=== PATIENT | male | born 1975 | race Caucasian/White ===

== ENCOUNTER 2019-12-25 22:30 | Emergency (ER) | payer BC, OTHER ==
[2019-12-25 22:52] VITALS: BP 146/96; PULSE 113; RESP 18; TEMP 98.7
--- NOTE | 2019-12-25 23:21 | ED ---
Headache HPI - General Chief Complaint: Headache Stated Complaint: Migraine Time Seen by Provider: 12/25/19 23:09 Mode of arrival: EMS Limitations: no limitations - History of Present Illness Initial Comments: 44-year-old male patient presents to the emergency department today for evaluation of migraine headache. Patient was brought in via EMS for severe left-sided headache. 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 Patient states that the pain worsened significantly and started radiating into the left eye. Patient states the pain was so intense that he was unable to think or move. Patient states that while in EMS he did have IV fluids and pain medication Toradol. Upon arrival to the emergency Department symptoms have improved. He states he does have a history of migraine headaches and his symptoms are consistent with his usual migraine pattern. He denies this being the worst hea dache of his life. He denies blurred or double vision. Denies numbness, tingling, weakness to the extremities. Denies any nausea or vomiting. Patient denies any recent rash, fever, chills, cough, shortness of breath, chest pain, abdominal pain, nausea, vomiting, diarrhea, constipation, back pain, numbness, tingling, hematuria, dysuria, urinary urgency, urinary frequency, or any other complaints. - Related Data Home Medications Medication Instructions Recorded Confirmed PARoxetine [Paxil] 20 mg PO DAILY 12/24/14 12/24/14 clonazePAM [KlonoPIN] 2 mg PO DAILY 12/24/14 12/24/14 Previous Rx's Medication Instructions Recorded Cyclobenzaprine [Flexeril] 1 - 2 tab PO TID #20 tablet 12/24/14 Hydrocodone/Acetaminophen [[place] 1 each PO Q6HR PRN #20 tab 12/24/14 5-325] Ibuprofen [Motrin] 800 mg PO Q6HR PRN #30 tab 12/24/14 Allergies Allergy/AdvReac Type Severity Reaction Status Date / Time No Known Allergies Allergy Verified 12/24/14 19:41 Review of Systems ROS Statement: Those systems with pertinent positive or pertinent negative responses have been documented in the HPI. ROS Other: All systems not noted in ROS Statement are negative. Past Medical History Past Medical History: No Reported History Additional Past Medical History / Comment(s): migraines History of Any Multi-Drug Resistant Organisms: None Reported Past Surgical History: No Surgical Hx Reported Past Psychological History: Anxiety, Panic Disorder Smoking Status: Never smoker Past Alcohol Use History: None Reported Past Drug Use History: None Reported General Exam Limitations: no limitations General appearance: alert, in no apparent distress, other (This is a well- developed, well-nourished adult male patient in no acute distress. Vital signs upon presentation are temperature 98.7F, pulse 113, respirations 18, blood pressure 146/96, pulse ox 97% on room air.) Eye exam: Present: normal appearance, PERRL, EOMI. Absent: scleral icterus, conjunctival injection, nystagmus, periorbital swelling ENT exam: Present: normal exam, normal oropharynx, mucous membranes moist Respiratory exam: Present: normal lung sounds bilaterally. Absent: respiratory distress, wheezes, rales, rhonchi, stridor Cardiovascular Exam: Present: regular rate, normal rhythm, normal heart sounds. Absent: systolic murmur, diastolic murmur, rubs, gallop, clicks Neurological exam: Present: alert, oriented X3, CN II-XII intact, other (Strength in all 4 extremities is 5/5.) Psychiatric exam: Present: normal affect, normal mood Skin exam: Present: warm, dry, intact, normal color. Absent: rash Course Vital Signs 12/25/19 22:46 Temperature 98.7 F Pulse Rate 113 H Respiratory 18 Rate Blood Pressure 146/96 O2 Sat by Pulse 97 Oximetry Medical Decision Making - Medical Decision Making 44-year-old male patient presents to the emergency department today for evaluation of severe migraine headache. Physical examination is unremarkable. He is neurologically intact without focal deficits. Patient did receive IV fluids and Toradol and the ambulance. Upon arrival to this emergency department he is feeling better. He is currently rating his pain at a 1 out of 10 on the pain scale. Patient states that this migraine is consistent with his usual migraine pattern. Denies this being the worst headache of his life. We did discuss possible treatment options, monitoring, testing, he states that he is feeling much better and would like to be discharged home. He is instructed to follow-up with his primary care physician for recheck in 1-2 days. Return parameters were discussed in detail. He verbalizes understanding and agrees with this plan. Disposition Clinical Impression: Migraine headache Disposition: HOME SELF-CARE Condition: Good Instructions (If sedation given, give patient instructions): Migraine Headache (ED) Additional Instructions: Increase fluids. Rest. Follow up to primary care physician for recheck in one to days. Discussed possibility of a prescription for Imitrex. Return to the emergency Department immediately for any new, worsening, or concerning symptoms. Is patient prescribed a controlled substance at d/c from ED?: No Referrals: Tristan Salcido DO [Primary Care Provider] - 1-2 days Time of Disposition: 23:21
== END 2019-12-25 23:54 | disposition home or self-care (01) ==
LOC: EC 22:30
DX: G43.909 Migraine, unspecified, not intractable, without status migrainosus (principal); F41.9 Anxiety disorder, unspecified; F41.0 Panic disorder [episodic paroxysmal anxiety]; Z79.899 Other long term (current) drug therapy
CPT/HCPCS: 99283

== ENCOUNTER 2023-01-12 15:10 | Observation (INO) | payer BC ==
[2023-01-12 15:43] LABS: Basophils % (A) 0 %; Eosinophils # (A) 0.4 k/uL (0-0.7); Eosinophils % (A) 5 %; HCT 43.8 % (39.0-53.0); HGB 14.5 gm/dL (13.0-17.5); Lymphocytes % (A) 23 %; MCH 28.9 pg (25.0-35.0); MCHC 33.1 g/dL (31.0-37.0); MCV 87.1 fL (80.0-100.0); Mean Platelet Volume 8.2; Monocytes # (A) 0.5 k/uL (0-1.0); Monocytes % (A) 6 %; Neutrophils # (A) 5.7 k/uL (1.3-7.7); Neutrophils % (A) 65 %; Platelet Count 268 k/uL (150-450); RBC 5.02 m/uL (4.30-5.90); RDW 12.8 % (11.5-15.5); WBC 8.8 k/uL (3.8-10.6)
[2023-01-12 16:08] LABS: ALT 19 U/L (4-49); AST 22 U/L (17-59); African American GFR (CKD) >90 (>60 ml/min/1.73 sqM); Alkaline Phosphatase 86 U/L (38-126); Anion Gap 8 mmol/L; Blood Urea Nitrogen 15 mg/dL (9-20); Calcium 9.1 mg/dL (8.4-10.2); Carbon Dioxide 25 mmol/L (22-30); Chloride 105 mmol/L (98-107); Glucose 101 mg/dL (74-99); Magnesium 2.2 mg/dL (1.6-2.3); Non-African American GFR(CKD) >90 (>60 ml/min/1.73 sqM); Partial Thromboplastin Time 23.4 sec (22.0-30.0); Potassium 4.2 mmol/L (3.5-5.1); Prothrombin Time 10.1 sec (9.0-12.0); Sodium 138 mmol/L (137-145); Total Bilirubin 0.3 mg/dL (0.2-1.3); Total Protein 7.1 g/dL (6.3-8.2)
--- NOTE | 2023-01-12 16:10 | XR ---
EXAMINATION TYPE: XR chest 2V DATE OF EXAM: 01/12/2023 COMPARISON: Chest x-ray of November 23, 2013 HISTORY: Chest pain. TECHNIQUE: Frontal and lateral views of the chest are obtained. FINDINGS: There is no suspicious new focal air space opacity, pleural effusion, or pneumothorax seen . The cardiac silhouette size is stable and within normal limits. The osseous structures are intac t. IMPRESSION: No acute process. No significant change from prior.
[2023-01-12] MEDS ORDERED: SODIUM CHLORIDE 0.9% 1,000 ML IV ONE (16:55)
--- NOTE | 2023-01-12 17:02 | ED ---
General Adult HPI - General Chief complaint: Chest Pain Stated complaint: SOB Time Seen by Provider: 01/12/23 16:36 Source: patient, RN notes reviewed Mode of arrival: ambulatory Limitations: no limitations - History of Present Illness Initial comments: 47-year-old male with no significant past medical history presents to the emergency department the chief complaint shortness of breath. Patient reports worsening shortness of breath for the last 40 days. He reports today is worse when he walks up the stairs. She reports pleuritic chest pain. He denies any recent plane rides or car. Denies tobacco product use denies chest pain, palpitations, nausea, vomiting, diaphoresis - Related Data Home Medications Medication Instructions Recorded Confirmed PARoxetine [Paxil] 20 mg PO HS 12/24/14 01/12/23 Losartan [Cozaar] 50 mg PO DAILY 01/12/23 01/12/23 clonazePAM [KlonoPIN] 0.5 mg PO BID 01/12/23 01/12/23 Allergies Allergy/AdvReac Type Severity Reaction Status Date / Time No Known Allergies Allergy Verified 01/12/23 18:02 Review of Systems ROS Statement: Those systems with pertinent positive or pertinent negative responses have been documented in the HPI. ROS Other: All systems not noted in ROS Statement are negative. Past Medical History Past Medical History: No Reported History Additional Past Medical History / Comment(s): migraines History of Any Multi-Drug Resistant Organisms: None Reported Past Surgical History: No Surgical Hx Reported Past Psychological History: Anxiety, Panic Disorder Past Alcohol Use History: None Reported Past Drug Use History: None Reported General Exam - General Exam Comments Initial Comments: General: Alert, in no acute distress Head: atraumatic normocephalic. Eyes PERRL, EOMI intact, mucous membranes moist Respiratory: Lungs clear to auscultation bilaterally Cardiovascular: Rate regular rate and rhythm Abdominal: Soft without guarding or rebound Extremities: Normal inspection with full range of motion and normal capillary refill Neuroogic: alert and oriented 3, CN II-XII intact, able to ambulate with steady gait Skin: warm dry and intact with normal color Limitations: no limitations Course Vital Signs 01/12/23 01/12/23 01/12/23 15:11 16:29 17:04 Temperature 97.7 F Pulse Rate 79 68 Respiratory 20 18 14 Rate Blood Pressure 136/89 127/93 O2 Sat by Pulse 98 95 Oximetry 01/12/23 01/12/23 17:18 19:00 Temperature Pulse Rate 68 Respiratory 18 Rate Blood Pressure 138/96 O2 Sat by Pulse 97 99 Oximetry - Reevaluation(s) Reevaluation #1: 01/12/23 18:15 Notified of elevated d-dimer. CT angiogram to rule out PE ordered. Reevaluation #2: 01/12/23 18:51 Discussed with [facility] [place] who agrees and accepts the patient for admission. EKG Findings - EKG Comments: EKG Findings:: I interpreted the following: EKG performed at 15:18 rate 60 bpm normal sinus rhythm DC interval 174, QRS duration 101, QT/QTC 375/393 Medical Decision Making - Medical Decision Making Was pt. sent in by a medical professional or institution (BRYNN Miller, RETAIL ACCOUNT MANAGER, urgent c are, hospital, or group home...) When possible be specific @ -[No] Did you speak to anyone other than the patient for history (EMS, parent, family, police, friend...)? What history was obtained from this source @ -[No] Did you review nursing and triage notes (agree or disagree)? Why? @ -[I reviewed and agree with nursing and triage notes] Were old charts reviewed (outside hosp., previous admission, EMS record, old EKG, old radiological studies, urgent care reports/EKG's, group home records)? Report findings @ -[No old charts were reviewed] Differential Diagnosis (chest pain, altered mental status, abdominal pain women, abdominal pain men, vaginal bleeding, weakness, fever, dyspnea, syncope, headache, dizziness, GI bleed, back pain, seizure, CVA, palpatations, mental health, musculoskeletal)? @ -[not applicable] EKG interpreted by me (3pts min.). @ -[As above] X-rays interpreted by me (1pt min.). @ -X-ray negative for any intrapleural process CT interpreted by me (1pt min.). @ -[None done] U/S interpreted by me (1pt. min.). @ -[None done] What testing was considered but not performed or refused? (CT, X-rays, U/S, labs)? Why? @ -[None] What meds were considered but not given or refused? Why? @ -[None] Did you discuss the management of the patient with other professionals (professionals i.e. , PA, RETAIL ACCOUNT MANAGER, lab, RT, psych nurse, child protective services social worker, ultrasonic hand solderer, teacher, national service officer, correctional casework specialist)? Give summary @ -[No] Was smoking cessation discussed for >3mins.? @ -[No] Was critical care preformed (if so, how long)? @ -[No] Were there social determinants of health that impacted care today? How? (Homelessness, low income, unemployed, alcoholism, drug addiction, transportation, low edu. Level, literacy, decrease access to med. care, care home, rehab)? @ -[No] Was there de-escalation of care discussed even if they declined (Discuss DNR or withdrawal of care, Hospice)? DNR status @ -[No] What co-morbidities impacted this encounter? (DM, HTN, Smoking, COPD, CAD, Cancer, CVA, ARF, Chemo, Hep., AIDS, mental health diagnosis, sleep apnea, morbid obesity)? @ -[None] Was patient admitted / discharged? Hospital course, mention meds given and route, prescriptions, significant lab abnormalities, going to OR and other pertinent info. @ -Admission. This is a 47-year-old male presents to the emergency department with shortness of breath. Patient had a thorough history and physical exam performed in the emergency department physical exam is essentially unremarkable heart rate regular rate and rhythm, lungs are to auscultation bilaterally abdomen soft and nontender. Patient's oxygen saturation remains to be 98-100% on 2 L. Lab work and imaging which reveals WBCs 8.8, hemoglobin 14.5, coagulation st udies unremarkable, sodium 138, potassium 4.2, troponin negative. Initial d- dimer 2.37. Patient had a CT angiogram performed to rule out pulmonary pulmonary embolism which revealed bilateral PEs without evidence of suicidal or right heart strain. I discussed the results with the patient verbalized understanding and all questions were addressed. Patient is agreeable with the plan for admission. Patient will be started on high-dose heparin. Case discussed with [facility] who agrees and accepts the patient for further observation with consult to pulmonology. Case discussed with RICK Curry who agrees with plan of care Undiagnosed new problem with uncertain prognosis? @ -[No] Drug Therapy requiring intensive monitoring for toxicity (Heparin, Nitro, Insulin, Cardizem)? @ -[No] Were any procedures done? @ -[No] Diagnosis/symptom? @ -Bilateral pulmonary embolism -Shortness of breath Acute, or Chronic, or Acute on Chronic? @ -Acute Uncomplicated (without systemic symptoms) or Complicated (systemic symptoms)? @ -Complicated Side effects of treatment? @ -[No] Exacerbation, Progression, or Severe Exacerbation? @ -[No] Poses a threat to life or bodily function? How? (Chest pain, [place], [place], pneumonia, PE, COPD, DKA, ARF, appy, cholecystitis, CVA, Diverticulitis, Homicidal, Suicidal, threat to staff... and all critical care pts) @ -Low likelihood - Lab Data Result diagrams: 01/12/23 15:22 01/12/23 15:22 Lab Results 01/12/23 01/12/23 01/12/23 Range/Units 15:22 15:22 15:22 WBC 8.8 (3.8-10.6) k/uL RBC 5.02 (4.30-5.90) m/uL Hgb 14.5 (13.0-17.5) gm/dL Hct 43.8 (39.0-53.0) % MCV 87.1 (80.0-100.0) fL MCH 28.9 (25.0-35.0) pg MCHC 33.1 (31.0-37.0) g/dL RDW 12.8 (11.5-15.5) % Plt Count 268 (150-450) k/uL MPV 8.2 Neutrophils % 65 % Lymphocytes % 23 % Monocytes % 6 % Eosinophils % 5 % Basophils % 0 % Neutrophils # 5.7 (1.3-7.7) k/uL Lymphocytes # 2.0 (1.0-4.8) k/uL Monocytes # 0.5 (0-1.0) k/uL Eosinophils # 0.4 (0-0.7) k/uL Basophils # 0.0 (0-0.2) k/uL PT 10.1 (9.0-12.0) sec INR 1.0 (<1.2) APTT 23.4 (22.0-30.0) sec D-Dimer (<0.60) mg/L FEU Sodium 138 (137-145) mmol/L Potassium 4.2 (3.5-5.1) mmol/L Chloride 105 (98-107) mmol/L Carbon Dioxide 25 (22-30) mmol/L Anion Gap 8 mmol/L BUN 15 (9-20) mg/dL Creatinine 0.96 (0.66-1.25) mg/dL Est GFR (CKD-EPI)AfAm >90 (>60 ml/min/1.73 sqM) Est GFR (CKD-EPI)NonAf >90 (>60 ml/min/1.73 sqM) Glucose 101 H (74-99) mg/dL Calcium 9.1 (8.4-10.2) mg/dL Magnesium 2.2 (1.6-2.3) mg/dL Total Bilirubin 0.3 (0.2-1.3) mg/dL AST 22 (17-59) U/L ALT 19 (4-49) U/L Alkaline Phosphatase 86 (38-126) U/L Troponin I (0.000-0.034) ng/mL Total Protein 7.1 (6.3-8.2) g/dL Albumin 4.0 (3.5-5.0) g/dL 01/12/23 01/12/23 01/12/23 Range/Units 15:22 16:55 16:56 WBC (3.8-10.6) k/uL RBC (4.30-5.90) m/uL Hgb (13.0-17.5) gm/dL Hct (39.0-53.0) % MCV (80.0-100.0) fL MCH (25.0-35.0) pg MCHC (31.0-37.0) g/dL RDW (11.5-15.5) % Plt Count (150-450) k/uL MPV Neutrophils % % Lymphocytes % % Monocytes % % Eosinophils % % Basophils % % Neutrophils # (1.3-7.7) k/uL Lymphocytes # (1.0-4.8) k/uL Monocytes # (0-1.0) k/uL Eosinophils # (0-0.7) k/uL Basophils # (0-0.2) k/uL PT (9.0-12.0) sec INR (<1.2) APTT (22.0-30.0) sec D-Dimer 2.37 H (<0.60) mg/L FEU Sodium (137-145) mmol/L Potassium (3.5-5.1) mmol/L Chloride (98-107) mmol/L Carbon Dioxide (22-30) mmol/L Anion Gap mmol/L BUN (9-20) mg/dL Creatinine (0.66-1.25) mg/dL Est GFR (CKD-EPI)AfAm (>60 ml/min/1.73 sqM) Est GFR (CKD-EPI)NonAf (>60 ml/min/1.73 sqM) Glucose (74-99) mg/dL Calcium (8.4-10.2) mg/dL Magnesium (1.6-2.3) mg/dL Total Bilirubin (0.2-1.3) mg/dL AST (17-59) U/L ALT (4-49) U/L Alkaline Phosphatase (38-126) U/L Troponin I <0.012 <0.012 (0.000-0.034) ng/mL Total Protein (6.3-8.2) g/dL Albumin (3.5-5.0) g/dL Disposition Clinical Impression: Shortness of breath, Bilateral pulmonary embolism Disposition: ADMITTED IP TO THIS HOSP Condition: Fair Is patient prescribed a controlled substance at d/c from ED?: No Referrals: Yolanda Garay MD [Primary Care Provider] - 1-2 days Time of Disposition: 18:51
--- NOTE | 2023-01-12 18:42 | CT ---
EXAMINATION TYPE: CT chest angio for PE DATE OF EXAM: 01/12/2023 COMPARISON: None HISTORY: elevated d-dimer CT DLP: 686 mGycm CONTRAST: CT chest with contrast and 3D reconstruction with MIP imaging is performed with IV Contrast, patient injected with 100 mL of Isovue 300. Contrast-enhanced CT of the chest was performed through the course of the pulmonary arteries with riley g and mediastinal window settings submitted. 3D reconstruction with MIP imaging was also performed. PULMONARY ARTERIES: Scattered second and third order filling defects seen bilaterally of the pulmonary arteries compatibl e pulmonary embolism. There is no evidence for large central component. There is no evidence for righ t heart strain. LUNGS: The lungs are clear and free of infiltrate. No evidence for atelectasis. No pulmonary nodule or mass is detected. No pleural effusion. MEDIASTINUM: Thoracic aorta is of normal caliber. Emphysematous bulla right upper lobe. The heart is not enlarged. No evidence for mediastinal mass. No mediastinal lymph nodes greater than 1cm. HILAR STRUCTURES: No evidence for mass. No hilar lymph nodes greater than 1 cm. UPPER ABDOMEN: No significant abnormality is seen. IMPRESSION: 1. Scattered second and third order filling defects seen bilaterally of the pulmonary arteries jaya tible mild pulmonary embolism. There is no evidence for large central component. There is no evidence for right heart strain.
[2023-01-12] MEDS ORDERED: HEPARIN SODIUM 1,000 UN/ML (10ML VL) IV PRN (18:46)
[2023-01-12] MEDS ORDERED: HEPARIN SODIUM 1,000 UN/ML (10ML VL) IV ONE (18:46)
[2023-01-12] MEDS ORDERED: NALOXONE 0.4 MG/ML 1 ML VIAL IV PRN (18:47)
[2023-01-12] MEDS: HEPARIN SOD,PORK IN 0.45% NACL 25,000 UNIT in 0.45% NACL 1 250ML.BAG IV SCH (19:09)
[2023-01-12] MEDS: SODIUM CHLORIDE 0.9% 1,000 ML IV SCH (19:10)
[2023-01-12] MEDS ORDERED: guaiFENesin SYRUP 100MG/5ML 200 MG/10 ML CUP PO PRN (21:38)
[2023-01-12] MEDS: NICOTINE 21MG/24HR PATCH TRANSDERM SCH (21:48)
[2023-01-13] MEDS: HEPARIN SOD,PORK IN 0.45% NACL 25,000 UNIT in 0.45% NACL 1 250ML.BAG IV SCH (08:20)
[2023-01-13] MEDS: SODIUM CHLORIDE 0.9% 1,000 ML IV SCH (08:22)
[2023-01-13] MEDS: NICOTINE 21MG/24HR PATCH TRANSDERM SCH (08:22)
[2023-01-13 10:02] VITALS: RESP 18
[2023-01-13 10:59] LABS: Basophils # (A) 0.03 X 10*3/uL (0.00-0.10); Basophils % (A) 0.4 %; Eosinophils # (A) 0.64 X 10*3/uL (0.04-0.35); Eosinophils % (A) 7.9 %; HCT 41.9 % (39.6-50.0); HGB 13.8 d/dL (12.0-15.0); Lymphocytes # (A) 1.96 X 10*3/uL (0.90-5.00); Lymphocytes % (A) 24.2 %; MCH 29.2 pg (27.0-32.0); MCHC 32.9 d/dL (32.0-37.0); MCV 88.6 FL (80.0-97.0); Mean Platelet Volume 10.6 FL (9.5-12.2); Monocytes # (A) 0.67 X 10*3/uL (0.20-1.00); Monocytes % (A) 8.3 %; NRBC Per 100 WBC 0 X 10*3/uL (0.00-0.01); Neutrophils # (A) 4.78 X 10*3/uL (1.80-7.70); Neutrophils % (A) 58.8 %; Platelet Count 273 X 10*3/uL (140-440); RBC 4.73 X 10*6/uL (4.40-5.60); RDW 12.3 % (11.5-14.5); WBC 8.11 X 10*3/uL (4.50-10.00)
--- NOTE | 2023-01-13 11:28 | CA ---
Transthoracic Echo Report Name: Chad Stewart Age: 47 Gender: M : 1975 Exam Date: 01/13/2023 10:12 Exam Location: [facility] Ht (in): 74 Wt (lb): 274 Ordering Physician: Citlaly Arroyo Attending/Referring Phys: Blade Filer Nohemi Ash RDCS Procedure CPT: Indications: PE Cardiac Hx: bilateral PE Technical Quality: Good Contrast 1: Total Dose (mL): Contrast 2: Total Dose (mL): MEASUREMENTS (Male / Female) Normal Values 2D ECHO LV Diastolic Diameter PLAX 4.8 cm 4.2 - 5.9 / 3.9 - 5.3 cm LV Systolic Diameter PLAX 2.5 cm IVS Diastolic Thickness 1.2 cm 0.6 - 1.0 / 0.6 - 0.9 cm LVPW Diastolic Thickness 1.1 cm 0.6 - 1.0 / 0.6 - 0.9 cm LV Relative Wall Thickness 0.5 RV Internal Dim ED PLAX 3.2 cm LA Systolic Diameter LX 2.9 cm 3.0 - 4.0 / 2.7 - 3.8 cm LA Volume 51.4 cm??? 18 - 58 / 22 - 52 cm??? M-MODE Aortic Root Diameter MM 4.0 cm MV E Point Septal Separation 0.6 cm AV Cusp Separation MM 2.7 cm DOPPLER AV Peak Velocity 142.2 cm/s AV Peak Gradient 8.1 mmHg MV Area PHT 3.5 cm??? Mitral E Point Velocity 80.2 cm/s Mitral A Point Velocity 54.4 cm/s Mitral E to A Ratio 1.5 MV Deceleration Time 215.0 ms MV E' Velocity 8.7 cm/s Mitral E to MV E' Ratio 9.2 FINDINGS Left Ventricle Left ventricular ejection fraction is estimated at 55-60 %. Left ventricular cavity size normal. Mildly increased septal wall thickness. Right Ventricle Normal right ventricular size and function. Unable to estimate the right ventricular systolic pressure. No TR. Normal systolic function Right Atrium Normal right atrial size. Left Atrium Normal left atrial size. Mitral Valve Structurally normal mitral valve. No mitral stenosis, regurgitation or prolapse. Aortic Valve Trileaflet aortic valve. No aortic valve stenosis or regurgitation. Tricuspid Valve Structurally normal tricuspid valve. No tricuspid stenosis, regurgitation or prolapse. Pulmonic Valve Structurally normal pulmonic valve. No pulmonic stenosis. No pulmonic regurgitation. Pericardium Normal pericardium. No pericardial effusion. Aorta Mild aortic dilatation at the level of the sinuses of valsalva 40 mm CONCLUSIONS Normal LV size and systolic function. Normal right ventricular size. Right- sided pressures are not well quantified but there is no significant tricuspid regurgitation. No significant abnormality in the Doppler exam. No pericardial effusion. Prominent aortic root Previewed by: Dr. Gladis Moreland MD (Electronically Signed) Final Date: 13 January 2023 11:27
--- NOTE | 2023-01-13 13:41 | P.DS ---
Providers Date of admission: 01/12/23 18:49 Attending physician: Yanique Pastrana Primary care physician: Yolanda Tanisha [facility] Course: Patient is a pleasant 47-year-old male came in with complaints of shortness of breath found to have bilateral pulmonary embolism mild pulmonary emboli patient denied any chest pain. Echocardiogram did not show any right heart strain. Patient's troponins are negative. Patient blood pressure is low normal. Patient was complaining of dry cough and gastroesophageal reflux. Patient denied any recent unintentional weight loss, recent travel patient is not sedentary, only risk factor for PE is obesity. Patient denied any smoking history. REVIEW OF SYSTEMS: CONSTITUTIONAL: No fever, no malaise, no fatigue. HEENT: No recent visual problems or hearing problems. Denied any sore throat. CARDIOVASCULAR: No chest pain, orthopnea, PND, no palpitations, no syncope. PULMONARY: no hemoptysis. GASTROINTESTINAL: No diarrhea, no nausea, no vomiting, no abdominal pain. NEUROLOGICAL: No headaches, no weakness, no numbness. HEMATOLOGICAL: Denies any bleeding or petechiae. GENITOURINARY: Denies any burning micturition, frequency, or urgency. MUSCULOSKELETAL/RHEUMATOLOGICAL: Denies any joint pain, swelling, or any muscle pain. ENDOCRINE: Denies any polyuria or polydipsia. The rest of the 14-point review of systems is negative. PHYSICAL EXAMINATION: GENERAL: The patient is alert and oriented x3, not in any acute distress. Well developed, well nourished. Obese HEENT: Pupils are round and equally reacting to light. EOMI. No scleral icterus. No conjunctival pallor. Normocephalic, atraumatic. No pharyngeal erythema. No thyromegaly. CARDIOVASCULAR: S1 and S2 present. No murmurs, rubs, or gallops. PULMONARY: Chest is clear to auscultation, no wheezing or crackles. ABDOMEN: Soft, nontender, nondistended, normoactive bowel sounds. No palpable organomegaly. MUSCULOSKELETAL: No joint swelling or deformity. EXTREMITIES: No cyanosis, clubbing, or pedal edema. NEUROLOGICAL: Gross neurological examination did not reveal any focal deficits. SKIN: No rashes. Assessment and plan -Bilateral pulmonary embolism: Etiology of pulmonary embolism is unknown patient doesn't have any family history patient need to be tested for poor coagulant conditions in about 3-6 months after holding off on the anticoagulation and patient will need follow-up with hematology at that time. Patient doesn't have any nitroglycerin patient will be started on eliquis and patient will be discharged today as patient is presently symptomatic at this time. If patient has unintentional weight loss patient may benefit from earlier colonoscopy and other usual cancer screening. -Gastric reflux disease Prilosec twice a day patient can get [id number]-wirwarv cough syrup for symptomatic relief -Hypertension patient blood pressure is low normal because of which I'm cutting the dose of Cozaar -Depression Patient will be discharged today Patient Condition at Discharge: Fair Plan - Discharge Summary New Discharge Prescriptions: New Apixaban [Eliquis Starter Pack (for VTE)] 0 mg PO DIRECTED 30 Days #1 pack Omeprazole [PriLOSEC] 20 mg PO AC-BID #14 cap Continue PARoxetine [Paxil] 20 mg PO HS clonazePAM [KlonoPIN] 0.5 mg PO BID Changed Losartan [Cozaar] 25 mg PO DAILY #0 Discharge Medication List PARoxetine [Paxil] 20 mg PO HS 12/24/14 [History] clonazePAM [KlonoPIN] 0.5 mg PO BID 01/12/23 [History] Apixaban [Eliquis Starter Pack (for VTE)] 0 mg PO DIRECTED 30 Days #1 pack 01/13/23 [Rx] Losartan [Cozaar] 25 mg PO DAILY #0 01/13/23 [Rx] Omeprazole [PriLOSEC] 20 mg PO AC-BID #14 cap 01/13/23 [Rx] Follow up Appointment(s)/Referral(s): Yolanda Garay MD [Primary Care Provider] - 3 Days Discharge Disposition: HOME SELF-CARE
--- NOTE | 2023-01-13 13:41 | P.HPIM ---
History of Present Illness Patient is a pleasant 47-year-old male came in with complaints of shortness of breath found to have bilateral pulmonary embolism mild pulmonary emboli patient denied any chest pain. Echocardiogram did not show any right heart strain. Patient's troponins are negative. Patient blood pressure is low normal. Patient was complaining of dry cough and gastroesophageal reflux. Patient denied any recent unintentional weight loss, recent travel patient is not sedentary, only risk factor for PE is obesity. Patient denied any smoking history. REVIEW OF SYSTEMS: CONSTITUTIONAL: No fever, no malaise, no fatigue. HEENT: No recent visual problems or hearing problems. Denied any sore throat. CARDIOVASCULAR: No chest pain, orthopnea, PND, no palpitations, no syncope. PULMONARY: no hemoptysis. GASTROINTESTINAL: No diarrhea, no nausea, no vomiting, no abdominal pain. NEUROLOGICAL: No headaches, no weakness, no numbness. HEMATOLOGICAL: Denies any bleeding or petechiae. GENITOURINARY: Denies any burning micturition, frequency, or urgency. MUSCULOSKELETAL/RHEUMATOLOGICAL: Denies any joint pain, swelling, or any muscle pain. ENDOCRINE: Denies any polyuria or polydipsia. The rest of the 14-point review of systems is negative. PHYSICAL EXAMINATION: GENERAL: The patient is alert and oriented x3, not in any acute distress. Well developed, well nourished. Obese HEENT: Pupils are round and equally reacting to light. EOMI. No scleral icterus. No conjunctival pallor. Normocephalic, atraumatic. No pharyngeal erythema. No thyromegaly. CARDIOVASCULAR: S1 and S2 present. No murmurs, rubs, or gallops. PULMONARY: Chest is clear to auscultation, no wheezing or crackles. ABDOMEN: Soft, nontender, nondistended, normoactive bowel sounds. No palpable organomegaly. MUSCULOSKELETAL: No joint swelling or deformity. EXTREMITIES: No cyanosis, clubbing, or pedal edema. NEUROLOGICAL: Gross neurological examination did not reveal any focal deficits. SKIN: No rashes. Assessment and plan -Bilateral pulmonary embolism: Etiology of pulmonary embolism is unknown patient doesn't have any family history patient need to be tested for poor coagulant conditions in about 3-6 months after holding off on the anticoagulation and patient will need follow-up with hematology at that time. Patient doesn't have any nitroglycerin patient will be started on eliquis and patient will be discharged today as patient is presently symptomatic at this time. If patient has unintentional weight loss patient may benefit from earlier colonoscopy and other usual cancer screening. -Gastric reflux disease Prilosec twice a day patient can get [id number] cough syrup for symptomatic relief -Hypertension patient blood pressure is low normal because of which I'm cutting the dose of Cozaar -Depression Patient will be discharged today Past Medical History Past Medical History: No Reported History Additional Past Medical History / Comment(s): migraines History of Any Multi-Drug Resistant Organisms: None Reported Past Surgical History: No Surgical Hx Reported Past Psychological History: Anxiety, Panic Disorder Smoking Status: Never smoker Past Alcohol Use History: None Reported Past Drug Use History: None Reported Medications and Allergies Home Medications Medication Instructions Recorded Confirmed Type PARoxetine [Paxil] 20 mg PO HS 12/24/14 01/12/23 History clonazePAM [KlonoPIN] 0.5 mg PO BID 01/12/23 01/12/23 History Apixaban [Eliquis Starter Pack 0 mg PO DIRECTED 30 Days #1 pack 01/13/23 Rx (for VTE)] Losartan [Cozaar] 25 mg PO DAILY #0 01/13/23 01/12/23 Rx Omeprazole [PriLOSEC] 20 mg PO AC-BID #14 cap 01/13/23 Rx Allergies Allergy/AdvReac Type Severity Reaction Status Date / Time No Known Allergies Allergy Verified 01/12/23 18:02 Physical Exam Vitals: Vital Signs Temp Pulse Pulse Resp BP BP Pulse Ox 01/13/23 08:00 98 F 72 18 115/84 94 L 01/13/23 06:36 67 16 121/79 96 01/13/23 00:53 68 18 106/66 96 01/12/23 21:49 82 20 121/80 97 01/12/23 19:00 68 18 138/96 99 01/12/23 17:18 97 01/12/23 17:04 68 14 127/93 95 01/12/23 16:29 18 01/12/23 15:11 97.7 F 79 20 136/89 98 Intake and Output 01/12/23 01/13/23 01/13/23 22:59 06:59 14:59 Intake Total 151.75 214.944 Balance 151.75 214.944 Intake: Intake, IV Titration 151.75 96.944 Amount Heparin Sod,Pork in 0.45% 151.75 96.944 NaCl 25,000 unit In 0.45 % NaCl 1 250ml.bag @ 18 UNITS/KG/HR 22.371 mls/hr IV .[id number] [facility] Rx#: [id number] Oral 118 Other: Weight 124.284 kg 124.284 kg Results CBC & Chem 7: 01/13/23 07:29 01/12/23 15:22 Labs: Abnormal Lab Results - Last 24 Hours (Table) 01/12/23 01/12/23 01/13/23 Range/Units 15:22 16:55 00:54 Eosinophils # (0.04-0.35) X 10*3/uL APTT 108.0 H* (22.0-30.0) sec D-Dimer 2.37 H (<0.60) mg/L FEU Glucose 101 H (74-99) mg/dL 01/13/23 01/13/23 Range/Units 07:29 07:29 Eosinophils # 0.64 H (0.04-0.35) X 10*3/uL APTT 52.9 H (22.0-30.0) sec D-Dimer (<0.60) mg/L FEU Glucose (74-99) mg/dL Thrombosis Risk Factor Assmnt - Choose All That Apply Each Factor Represents 1 point: Age 41-60 years Thrombosis Risk Factor Assessment Total Risk Factor Score: 1 Thrombosis Risk Factor Assessment Level: Low Risk
[2023-01-13 13:46] VITALS: BP 122/74; PULSE 82; TEMP 97.8
[2023-01-13] MEDS ORDERED: APIXABAN 5 MG TAB PO SCH (14:15)
== END 2023-01-13 14:19 | disposition home or self-care (01) ==
LOC: EC 15:10 → 4SSUR 18:49 → INTOOBSV 18:49 → 4SSUR 21:14
PROVIDERS: ADMIT Hospitalist; ATTEND Hospitalist
DX: I26.99 Other pulmonary embolism without acute cor pulmonale (principal); F41.0 Panic disorder [episodic paroxysmal anxiety]; J43.9 Emphysema, unspecified; K21.9 Gastro-esophageal reflux disease without esophagitis; E66.9 Obesity, unspecified; I10 Essential (primary) hypertension; F32.A Depression, unspecified; Z79.899 Other long term (current) drug therapy; Z68.35 Body mass index [BMI] 35.0-35.9, adult
CPT/HCPCS: 96376; 96360; 96365; 96366 ×2; 99285; 36415; 93005; 93306; 85379; 80053; 83735; 84484; 85025 ×2; 85610; 85730 ×2; 71046; 71275; G0378 ×2; S4990 ×2; J1644 ×3; Q9967